=== PATIENT | male | born 1950 | race Caucasian/White ===

== ENCOUNTER → 2017-08-06 16:43 | Outpatient (CLI) | payer MEDICARE, MEDICAID ==
[2017-08-06 19:15] LABS: CHOL - HDL RATIO 3.4 ratio (2.3-4.9); LDL-HDL RATIO 1.7 ratio (1.5-3.5)
== END | disposition home or self-care (01) ==
LOC: D.LABREF 16:43
PROVIDERS: Internal Medicine Cardiovascular Disease
DX: E78.5 Hyperlipidemia, unspecified (principal)

== ENCOUNTER 2017-09-14 06:14 | Emergency (ER) | payer MEDICARE, MEDICAID ==
[2017-09-14 07:01] LABS: BASOPHILS 0 % (0-2); EOSINOPHILS 4.6 % (0-7); HEMATOCRIT 42.3 % (42.0-54.0); HEMOGLOBIN 14.6 g/dL (13.5-17.5); IMMATURE GRANULOCYTES 0.3 % (0-5); MCH 31.5 pg (26.0-34.0); MCHC 34.5 g/dL (31.0-37.0); MCV 91.2 fL (80.0-100.0); MEAN PLATELET VOLUME 10.5 fL (7.4-10.4); MONOCYTES 10.4 % (2-11); NEUTROPHILS 67.7 % (40-80); PLATELET COUNT 180 10x3/uL (130-400); RBC 4.64 10x6/uL (4.20-6.10); RDW 13.5 % (11.5-14.5); WBC 6.5 10x3/uL (4.8-10.8)
[2017-09-14 07:27] LABS: ALBUMIN 3.8 g/dL (3.4-5.0); ALKALINE PHOSPHATASE 99 U/L (46-116); ALT (SGPT) 21 U/L (10-68); BILIRUBIN - TOTAL 0.46 mg/dL (0.2-1.3); CALC OSMOLALITY 278 mosm/kg (275-300); CALCIUM 9.1 mg/dL (8.5-10.1); CARBON DIOXIDE 24.2 mmol/L (21.0-32.0); CHLORIDE - SERUM 103 mmol/L (98-107); CREATININE - SERUM 0.8 mg/dL (0.6-1.3); GLUCOSE 160 mg/dL (74-106); PROTEIN - SERUM 6.8 g/dL (6.4-8.2); SODIUM 138 mmol/L (136-145); UREA NITROGEN 12 mg/dL (7-18); eGFR NON AFRICAN AMERICAN > 90 mL/min (90-120)
[2017-09-14 07:35] LABS: MAGNESIUM - SERUM 2.3 mg/dL (1.8-2.4); PRO BNP 653 pg/mL (0-125); TROPONIN-I < 0.017 ng/mL (0.000-0.060)
== END 2017-09-14 10:05 | disposition home or self-care (01) ==
LOC: D.ER 06:14
PROVIDERS: Family Medicine
DX: I48.0 Paroxysmal atrial fibrillation (principal); I10 Essential (primary) hypertension

== ENCOUNTER → 2017-11-06 16:52 | Outpatient (CLI) | payer MEDICARE, MEDICAID ==
[~2017-11-06 16:52] MED LIST: AMITIZA8 MCG PO; BAYER CHEWABLE81 MG PO; BREO ELLIPTA 21 EACH; CARTIA XT120 MG PO; COREG12.5 MG PO; ELIQUIS5 MG PO; FISH OIL 1,0001 CA1 PO; LUNESTA3 MG PO; MESTINON60 MG PO; NIASPAN500 MG PO; OMEPRAZOLE20 M1 PO; TIKOSYN500 MCG PO; ZOCOR10 MG PO
[2017-11-06 17:55] LABS: BASOPHILS 0.2 % (0-2); EOSINOPHILS 6.1 % (0-7); HEMATOCRIT 42.1 % (42.0-54.0); HEMOGLOBIN 14.1 g/dL (13.5-17.5); IMMATURE GRANULOCYTES 0.3 % (0-5); LYMPHOCYTES 17.9 % (15-50); MCH 30.9 pg (26.0-34.0); MCHC 33.5 g/dL (31.0-37.0); MCV 92.3 fL (80.0-100.0); MEAN PLATELET VOLUME 11.3 fL (7.4-10.4); MONOCYTES 11.1 % (2-11); NEUTROPHILS 64.4 % (40-80); PLATELET COUNT 190 10x3/uL (130-400); RBC 4.56 10x6/uL (4.20-6.10); RDW 13.8 % (11.5-14.5)
[2017-11-06 17:57] LABS: CALC OSMOLALITY 279 mosm/kg (275-300); CALCIUM 8.8 mg/dL (8.5-10.1); CARBON DIOXIDE 24.8 mmol/L (21.0-32.0); CHLORIDE - SERUM 103 mmol/L (98-107); CREATININE - SERUM 0.7 mg/dL (0.6-1.3); GLUCOSE 134 mg/dL (74-106); POTASSIUM - SERUM 4.3 mmol/L (3.5-5.1); SODIUM 138 mmol/L (136-145); UREA NITROGEN 18 mg/dL (7-18); eGFR NON AFRICAN AMERICAN > 90 mL/min (90-120)
[2018-01-02 06:59] VITALS: BMI 44.7
== END | disposition home or self-care (01) ==
LOC: D.LABREF 16:52
PROVIDERS: Nurse Practitioner
DX: I48.91 Unspecified atrial fibrillation (principal)

== ENCOUNTER → 2017-12-23 08:57 | Outpatient (CLI) | payer MEDICARE, MEDICAID ==
[2018-01-02 06:59] VITALS: BMI 44.7
== END | disposition home or self-care (01) ==
LOC: D.CT 08:57
DX: M54.2 Cervicalgia (principal)

== ENCOUNTER → 2018-01-02 05:50 | Outpatient (CLI) | payer MEDICARE, MEDICAID ==
[~2018-01-02] VITALS: Ht 180.3 cm; Wt 145.5 kg
--- NOTE | ~2018-01-02 | HEMODYNAMI ---
PATIENT:JEAN ORTIZ MEDICAL RECORD: [id number] : 54 LOCATION:[facility] ADMISSION DATE: 01/02/18 Generatedon:01/02/20188:20 Patient name: JEAN ORTIZ Patient #: [id number] SSN: : 1950 Date of study: 01/02/2018 Page: Of Hemodynamic Procedure Report Patient Data Patient Demographics Procedure consent was obtained First Name: JEAN Gender: Male Last Name: DIANA : 1950 Middle Initial: Stephanie Age: 67 year(s) Patient #: [id number] Race: Unknown Additional ID: [id number] Contact details [address]: [address] [place] [address] lane State: [place] City: [place] Zip code: [address] Past Medical History Allergies Allergen Reaction Date Comments Reported Other allergy 01/02/2018 CEFDINIR Admission Admission Data Admission Date: 01/02/2018 Admission Time: 5:50 Height (in.): 5.11 BSA: 0.38 (m2) Height (cm.): 12.98 BMI: 8535.24 (kg/m2) Weight (lbs.): 317 Weight (kg.): 143.79 Lab Results Lab Result Date: 01/02/2018 Lab Result Time: 0:00 Biochemistry Name Units Result Min Max BUN mg/dl 15 --(--*-)-- 7 18 Creatinine mg/dl 0.9 --(-*--)-- 0.6 1.3 CBC Name Units Result Min Max Hemoglobin g/dl 15 --(-*--)-- 13.5 17.5 Procedure Procedure Types Cath Procedure Diagnostic Procedure LHC LHC w/Coronaries Procedure Description Procedure Date Procedure Date: 01/02/2018 Procedure Start Time: 8:05 Procedure End Time: 8:19 Procedure Staff Name Function Julian Odonnell MD Performing Physician Marine Guthrie RT Scrub Norberto Maxwell RN Nurse Madan Larios RT Monitor Procedure Data Cath Procedure Fluoroscopy Diagnostic fluoroscopy Total fluoroscopy Time: 2.1 time: 2.1 min min Diagnostic fluoroscopy Total fluoroscopy dose: 776 dose: 776 mGy mGy Contrast Material Contrast Material Type Amount (ml) Isovue 300 54 Entry Location Entry Primary Successful Side Size Upsize Upsize Entry Closure Harris ccessful Closure Location (Fr) 1 (Fr) 2 (Fr) Remarks Device Remarks Radial Right 6 Fr Mechanical artery Short Compression Estimated blood loss: 5 ml Diagnostic catheters Device Type Used For End Catheter Placement DIAGNOSTIC Leoncio 110cm Procedure 5Fr catheter ([id number]) Procedure Complications No complications Procedure Medications Medication Administration Route Dosage 0.9% NaCl I.V. 100 ml/hr Oxygen etCO2 Nasal cannula 2 l/min Heparin Flush Bag added to field 2 bags (1000units/500ml NS) Lidocaine 2% added to field 20 Radial Cocktail added to field 1 syringe (Verapomil 2mg/Nitro 400mcg/Heparin 1500units) Versed I.V. 2 mg Fentanyl I.V. 100 mcg Versed I.V. 2 mg Radial Cocktail I.A. 1 syringe (Verapomil 2mg/Nitro 400mcg/Heparin 1500units) Versed I.V. 2 mg Hemodynamics Rest BSA: 0.38 (m2) HGB: 15 (g/dl) O2 Consumption: Estimated: 48.38 (ml/min) O2 Consu mption indexed: Estimated:127.32 (ml/min/m) Heart Rate: 98 (bpm) Pressure Samples Time Site Value (mmHg) Purpose Heart Use Rate(bpm) 8:08 LV 90/-1,2 Snapshot 126 8:08 AO 79/60(66) Pullback 99 8:08 LV 92/-1,4 Pullback 99 Gradients Valve Time Site 1 Site 2 Mean SEP/DFP Peak To Heart Use (mmHg) (sec/min) Peak Rate (mmHg) (bpm) Aortic 8:08 LV AO 6 21 13 99 92/-1,4 79/60(66) Calculations Valve P-P Mean Valve Index Valve Source Name Gradient Area Flow (cm2) Aortic 13 6 13 6 Snapshots Pre Cath Intra NCS Post Cath Vital Signs Time Heart Resp SPO2 etCO2 NIBP (mmHg) Rhythm Pain Sedation Rate (ipm) (%) (mmHg) Status Level (bpm) 7:58:02 97 12 95 5.9 129/77(97) NSR 0 (11) 10(A) , No pain 8:02:51 60 12 95 1.4 121/74(93) NSR 0 (11) 10(A) , No pain 8:07:34 106 19 96 19.4 119/70(90) NSR 0 (11) 10(A) , No pain 8:12:12 80 18 94 33.6 114/96(111) NSR 0 (11) 10(A) , No pain 8:16:57 105 10 96 32.9 107/77(92) NSR 0 (11) 10(A) , No pain Medications Time Medication Route Dose Verified Delivered Reason Notes Effectiveness by by 7:56:43 0.9% NaCl I.V. 100 Norberto Norberto Per ml/hr Alissa Maxwell physician RN RN 7:57:06 Oxygen etCO2 2 l/min Norberto Norberto Per Nasal Alissa Maxwell physician cannula RN RN 7:57:23 Heparin Flush added 2 bags Norberto Norberto used for Bag to Alissa Maxwell procedure (1000units/500ml field ALVAREZ RN NS) 7:57:35 Lidocaine 2% added 20ml Norberto Norberto for local to vial Lorigan Alissa anesthetic field ALVAREZ RN 7:58:01 Radial Cocktail added 1 Norberto Norberto used for (Verapomil to syringe Alissa Maxwell procedure 2mg/Nitro field KIM ALVAREZ 400mcg/Heparin 1500units) 8:00:13 Versed I.V. 2 mg Norberto Norberto for sedation Alissa Maxwell RN, RN 8:00:21 Fentanyl I.V. 100 mcg Norberto Norberto for sedation Alissa Maxwell RN, RN 8:05:36 Versed I.V. 2 mg Norberto Norberto for sedation Alissa Maxwell RN, RN 8:07:24 Radial Cocktail I.A. 1 Norberto Julian for (Verapomil syringe Alissa crabtree 2mg/Nitro RN 400mcg/Heparin 1500units) 8:09:18 Versed I.V. 2 mg Norberto Norberto for sedation Alissa Maxwell RN aerodynamics teacher Log Time Note 7:23:21 Signed procedure consent form obtained from patient. 7:23:23 Time tracking: Regular hours (M-F 7:00 - 5:00) 7:23:27 Plan of Care:Hemodynamics will remain stable., Cardiac rhythm will remain stable., Comfort level will be maintained., Respiratory function will remain adequate., Patient/ family verbilizes understanding of procedure., Procedure tolerated without complication., Recovers from procedure without complications.. 7:26:25 Patient allergic to Other allergyCEFDINIR 7::47 Lab Result : BUN 15 mg/dl 7::47 Lab Result : Creatinine 0.9 mg/dl 7::47 Lab Result : Hemoglobin 15 g/dl 7:27:42 Remy Aviles RT(R) sent for patient. Start room use. 7:29:34 Patient Height : 5.11 inches 7:29:45 Patient Weight : 317 lbs 7:37:54 Patient received from Pre/Post Procedure Room to CCL 1 Alert and oriented. Tansferred to table in Supine position. 7:37:59 Warm blankets applied, and caleb hugger turned on for patient comfort. 7:38:00 Correct patient and procedure confirmed by team. 7:38:01 ECG and BP/O2 sat monitors applied to patient. 7:41:48 H&P Date Dictated: 12/03/2017 Within 30 days and on chart., H&P Addendum completed by physician on day of procedure. (MUST COMPLETE FOR ALL OUTPATIENTS). 7:41:50 Pre-procedure instructions explained to patient. 7:41:51 Pre-op teaching completed and patient verbalized understanding. 7:41:54 Family unavailable. 7:41:55 Patient NPO since Midnight. 7:41:57 Is the patient allergic to Iodine/contrast media? No. 7:42:02 Is patient on blood thinner?Yes 7:42:31 LAST DOSE OF ELIQUIS WAS 4.23.18. 7:42:42 Patient diabetic? No. 7:42:53 Previous problem with sedation/anesthesia? No ? 7:42:56 Snore? Yes 7:42:57 Sleep apnea? Yes 7:42:59 Deviated septum? No 7:43:00 Opens mouth fully? Yes 7:43:01 Sticks out tongue? Yes 7:43:04 Airway obstruction? No ? 7:43:09 Dentures? No ? 7:43:20 Pre procedure: right dorsailis pedis pulse 1+ Palpable, but thready & weak; easily obliterated 7:43:23 Modified Young's test Ulnar < 7 seconds 7:43:26 Patient pain scale 0/10 ?. 7:43:34 IV patent on arrival in left forearm with 0.9% NaCl at O. 7:43:37 Lab results completed and on chart. 7:43:41 Right Radial & Right Groin area was prepped with chlora-prep and draped in sterile fashion 7:43:43 Alarms reviewed by R. N. 7:43:43 Sharps counted by scrub and verified by R.N. 7:56:43 0.9% NaCl 100 ml/hr I.V. was administered by Norberto Maxwell RN; Per physician; 7:56:52 Baseline sample Acquired. 7:57:01 Use device set Radial Dx or PCI 7:57:04 Vital chart was started 7:57:06 Oxygen 2 l/min etCO2 Nasal cannula was administered by Norberto Maxwell RN; Per physician; 7:57:16 Medline Cath Pack ([id number]) opened to sterile field. 7:57:16 ACIST Syringe (01197) opened to sterile field. 7:57:17 Bag Decanter (2002S) opened to sterile field. 7:57:19 ACIST Hand Control (27236) opened to sterile field. 7:57:19 ACIST Manifold (48845) opened to sterile field. 7:57:21 MBrace Wrist Support ([id number]) opened to sterile field. 7:57:21 Tegaderm 4 x 4 (1626W) opened to sterile field. 7:57:23 DIAGNOSTIC WIRE .035 260cm J wire (002871) opened to sterile field. 7:57:23 Heparin Flush Bag (1000units/500ml NS) 2 bags added to field was administered by Norberto Maxwell RN; used for procedure; 7:57:26 SHEATH 6Fr Prelude Radial ([id number]) opened to sterile field. 7:57:35 Lidocaine 2% 20ml vial added to field was administered by Norberto Maxwell RN; for local anesthetic; 7:58:01 Radial Cocktail (Verapomil 2mg/Nitro 400mcg/Heparin 1500units) 1 syringe added to field was administered by Norberto Maxwell RN; used for procedure; 7:59:14 Rhythm: atrial fibrillation 7:59:17 Physician arrived 7:59:17 --------ALL STOP TIME OUT------ 7:59:17 Final Timeout: patient, procedure, and site verified with staff and physician. All members of the team are in agreement. 7:59:19 Right Radial & Right Groin site verified by team. 7:59:21 Physical assessment completed. ASA score P 2 - A patient with mild systemic disease as per Julian Odonnell MD. 7:59:24 Sedation plan: IV Moderate Sedation Medication:Versed, Fentanyl 8:00:13 Versed 2 mg I.V. was administered by Norberto Maxwell RN; for sedation; 8:00:21 Fentanyl 100 mcg I.V. was administered by Norberto Maxwell RN; for sedation; 8:02:26 Zero performed for pressure channel P1 8:05:15 Procedure started. 8:05:15 Full Disclosure recording started 8::19 Local anesthetic to right radial artery with Lidocaine 2% by Julian Odonnell MD.INITIAL ACCESS ONLY 8:05:36 Versed 2 mg I.V. was administered by Norberto Maxwell RN; for sedation; 8:06:15 A 6 Fr Short sheath was inserted into the Right Radial artery 8:06:30 A DIAGNOSTIC Leoncio 110cm 5Fr catheter ([id number]) was advanced over the wire and used for Procedure. 8:07:24 Radial Cocktail (Verapomil 2mg/Nitro 400mcg/Heparin 1500units) 1 syringe I.A. was administered by Julian Odonnell MD; for vasodilation; 8:08:23 LV gram done using MILLER 8:08:26 Injector settings: Ml/sec: 5, Volume: 15, 8:08:37 EF : 45 % 8:09:18 Versed 2 mg I.V. was administered by Norberto Maxwell RN; for sedation; 8:09:27 LCA angiography performed. 8:11:05 RCA angiography performed. 8:12:18 Catheter removed. 8:13:56 TR BAND Large ([id number]) opened to sterile field. 8:14:04 Sheath removed intact; hemostasis achieved with Mechanical Compression to the Right Radial artery. 8:14:06 Procedure ended.(Physican Out) 8:14:33 Fluoroscopy time 02.10 minutes. 8:14:36 Flurop Dose total: 776 8:14:36 Fluoroscopy dose: 776 mGy 8:14:39 Contrast amount:Isovue 300 54ml. 8:14:41 Sharps counted by scrub and verified by R.N. 8:14:43 TR band inflated with 12cc of air. 8:14:44 Insertion/operative site no bleeding no hematoma. 8:14:46 Post Procedure Pulses reassessed and unchanged 8:14:49 Post-procedure physical assessment completed. ASA score P 2 - A patient with mild systemic disease as per Julian Odonnell MD. 8:14:51 Post procedure rhythm: unchanged. 8:14:53 Estimated blood loss: 5 ml 8:14:54 Post procedure instruction explained to patient.Patient verbalizes understanding. 8:14:55 Patient needs reinforcement of post procedure teaching. 8:19:41 Procedure Complication : No complications 8:19:43 Vital chart was stopped 8:19:43 See physician's report for complete and final results. 8:19:45 Report given to Pre/Post Procedure Room. 8:19:48 Patient transfered to Pre/Post Procedure Room with Stretcher. 8:19:49 Procedure ended. 8:19:49 Full Disclosure recording stopped 8:19:53 End room use (Document Last) Device Usage Item Name Manufacture Quantity Catalog Number Hospital Part Current M inimal Lot# / Charge Number Stock Stock Serial# Code TR BAND Large Terumo 1 [id number] 731945 [id number] 4 0 ([id number]) ACIST Syringe Acist 1 33992 841905 573486 534715 2 0 (29583) [employer] Medline Cath Cardinal 1 [id number] 322046 88078 546774 5 Pack Health ([id number]) Bag Decanter Microtek 1 2001S 680354 24712 330090 5 (2001S) Medical Inc. ACIST Hand Acist 1 55668 026470 518994 602592 5 Control (35149) [employer] Inc ACIST Manifold Acist 1 52764 290106 624702 642574 5 (37584) [employer] Inc Tegaderm 4 x 4 3M 1 1626W 925833 831853 458558 5 (1626W) MBrace Wrist Advanced 1 140-0250-00 861846 77281 814964 5 Support Vascular ([id number]) Dynamics DIAGNOSTIC WIRE [facility] 1 068617 077556 642125 867576 3 0 .035 260cm J wire (320900) SHEATH 6Fr Merit 1 [id number] 478972 226377 691320 5 Prelude Radial Medical ([id number]) DIAGNOSTIC Terumo 1 82-0917 591698 394164 187088 5 Leoncio 110cm 5Fr catheter (607527) Signature Audit Spring Stage Time Signature Unsigned Intra-Procedure 01/02/2018 Madan Larios 8:20:18 AM RT(R) Signatures Monitor : Madan Larios RT Signature : Date : Time : [address] [address]
[2018-01-02 06:55] LABS: BASOPHILS 0.1 % (0-2); IMMATURE GRANULOCYTES 0.1 % (0-5); LYMPHOCYTES 16.5 % (15-50); MCH 30.5 pg (26.0-34.0); MCHC 34.1 g/dL (31.0-37.0); MCV 89.6 fL (80.0-100.0); MEAN PLATELET VOLUME 10.4 fL (7.4-10.4); NEUTROPHILS 67.3 % (40-80); PLATELET COUNT 164 10x3/uL (130-400); RBC 4.91 10x6/uL (4.20-6.10); RDW 13.6 % (11.5-14.5); WBC 6.9 10x3/uL (4.8-10.8)
[2018-01-02 06:59] VITALS: BP 119/83; Ht 180.3 cm; Wt 145.5 kg
[2018-01-02 07:05] LABS: CALC OSMOLALITY 281 mosm/kg (275-300); CALCIUM 8.5 mg/dL (8.5-10.1); CARBON DIOXIDE 23.5 mmol/L (21.0-32.0); CHLORIDE - SERUM 104 mmol/L (98-107); CREATININE - SERUM 0.9 mg/dL (0.6-1.3); GLUCOSE 140 mg/dL (74-106); POTASSIUM - SERUM 3.9 mmol/L (3.5-5.1); SODIUM 140 mmol/L (136-145); UREA NITROGEN 15 mg/dL (7-18); eGFR NON AFRICAN AMERICAN 90 mL/min (90-120)
== END | disposition home or self-care (01) ==
LOC: D.CATH 05:50
PROVIDERS: Internal Medicine Cardiovascular Disease
DX: I25.119 Atherosclerotic heart disease of native coronary artery with unspecified angina pectoris (principal); Z95.5 Presence of coronary angioplasty implant and graft; Z01.812 Encounter for preprocedural laboratory examination

== ENCOUNTER 2019-03-16 09:09 | Day surgery (SDC) | payer MEDICARE, BC ==
[~2019-03-16] VITALS: Ht 180.3 cm; Wt 142.7 kg
[2019-03-16] MEDS ORDERED: TEMAZEPAM30 MG PO (10:05)
[2019-03-16] MEDS ORDERED: OXYBUTYNIN CHLOR5 M1 PO (10:06)
[2019-03-16 10:08] VITALS: BP 117/72; Ht 180.3 cm; Wt 142.7 kg
[2019-03-16 10:49] LABS: APTT 29.7 SECONDS (22.8-39.4); INR 1.07 (0.85-1.17); PROTIME 13.4 SECONDS (11.6-15.0)
[2019-03-16 11:08] LABS: HEMATOCRIT 46.3 % (42.0-54.0); HEMOGLOBIN 15.9 g/dL (13.5-17.5); MCH 31.8 pg (26.0-34.0); MCHC 34.3 g/dL (31.0-37.0); MCV 92.6 fL (80.0-100.0); MEAN PLATELET VOLUME 10.5 fL (7.4-10.4); RDW 13.6 % (11.5-14.5); WBC 6.6 10x3/uL (4.8-10.8)
--- NOTE | 2019-03-16 13:26 | NUR ---
1231 IV DC'D. CATHETER INTACT. NO BLEEDING AT SITE. BANDAID APPLIED.
--- NOTE | 2019-03-16 13:27 | NUR ---
1245 PT HAS MET DISCHARGE CRITERIA. PT IS DRESSED, SITTING IN CHAIR,AND WAITING FOR HIS FAMILY MEMBER TO PICK HIM UP.
--- NOTE | 2019-03-18 08:48 | OP ---
PATIENT NAME: JEAN ORTIZ MEDICAL RECORD: [id number] :54 [facility] ADMISSION DATE: SURGEON: KASSY CHRISTENSEN DO DATE OF OPERATION: 03/16/2019 PROCEDURE: Colonoscopy with polypectomy. INDICATIONS FOR PROCEDURE: Screening for colorectal cancer. SCOPE: Olympus video pediatric colonoscope. MEDICATIONS: Propofol 450 mg IV per Anesthesia. WITHDRAWAL TIME: 13 minutes. ESTIMATED BLOOD LOSS: Minimal. COMPLICATIONS: None. FINDINGS: Informed consent was given. The patient was made comfortable with the above medication. After reaching an adequate level of sedation by slow IV push, the patient was placed on his left side. A digital rectal examination was performed and was normal. The endoscope was then advanced under direct visualization through the rectum to the cecum, confirmed by the presence of the appendiceal orifice and ileocecal valve. The endoscope was slowly withdrawn and mucosa was carefully examined. The prep quality was good. There were 4 polyps visualized on today's examination. One was located in the ascending colon. It was benign appearing sessile polyp, which measured approximately 6-7 mm in diameter. It was removed using a hot snare in 1 piece and completely retrieved. In the transverse colon, there were two separate benign-appearing sessile polyps, which ranged in size from 3-4 mm in diameter. They were both removed using a hot snare in 1 piece and completely retrieved. In the descending colon, there was a benign appearing sessile polyp, which measured approximately 4 mm in diameter. It was removed using a hot snare in 1 piece and completely retrieved. There was evidence of moderate diverticulosis involving the descending and sigmoid colon. Retroflexion was performed in the rectum with visualization of grade I internal hemorrhoids without active bleeding. The endoscope was withdrawn from the patient. The patient tolerated the procedure well and there were no complications. IMPRESSION: 1. Four polyps as described above, removed using a hot snare. 2. Moderate diverticulosis of the descending and sigmoid colon. 3. Grade I internal hemorrhoids without bleeding. PLAN AND RECOMMENDATIONS: 1. Discharge home when recovery parameters are met. 2. Follow up biopsy specimen results. 3. High fiber diet. 4. Continue current medications. 5. Recall colonoscopy in 3 years. TRANSINT:[id number] Voice Confirmation ID: [id number] DOCUMENT ID: [id number] OPERATIVE REPORT [id number] JEAN ORTIZ KASSY CHRISTENSEN DO at 0848 CC: [id number] DICTATION DATE: 03/16/19 1148 REVENUE MANAGER: 03/16/19 1200 [facility] 03/16/19 [id number] [place] [address]
== END 2019-03-16 13:15 | disposition home or self-care (01) ==
LOC: D.OPS 09:09
PROVIDERS: Anesthesiology; ATTEND Internal Medicine Gastroenterology
DX: Z12.11 Encounter for screening for malignant neoplasm of colon (principal); K63.5 Polyp of colon; K64.0 First degree hemorrhoids; K57.30 Diverticulosis of large intestine without perforation or abscess without bleeding; Z01.812 Encounter for preprocedural laboratory examination

== ENCOUNTER 2019-06-01 08:30 | Day surgery (SDC) | payer MEDICARE, BC ==
[2019-05-29 10:17] LABS: HEMOGLOBIN 15.4 g/dL (13.5-17.5); MCH 31.8 pg (26.0-34.0); MCV 90.7 fL (80.0-100.0); MEAN PLATELET VOLUME 10.6 fL (7.4-10.4); RBC 4.85 10x6/uL (4.20-6.10); RDW 13.3 % (11.5-14.5); WBC 7.5 10x3/uL (4.8-10.8)
[2019-05-29 10:22] LABS: APTT 32.2 SECONDS (22.8-39.4); INR 1.17 (0.85-1.17); PROTIME 14.4 SECONDS (11.6-15.0)
[~2019-06-01] VITALS: Ht 180.3 cm; Wt 115.7 kg
[~2019-06-01 08:30] MED LIST changes: +OXYBUTYNIN CHLOR5 M1 PO; +TEMAZEPAM30 MG PO
[2019-06-01] MEDS ORDERED: FLUTICASONE PRO16 GM NASAL (09:07)
[2019-06-01] MEDS ORDERED: ADVIL200 MG PO (09:09)
[2019-06-01 09:27] VITALS: BP 139/81; Ht 180.3 cm; Wt 115.7 kg
[2019-06-01] MEDS ORDERED: HYDROCODON-ACE1 EA10 PO (12:05)
--- NOTE | 2019-06-01 12:18 | NUR ---
PT DENIES COMPLAINT OR PAIN. DIGIT BLOCK ADMIN DURING CASE
--- NOTE | 2019-06-01 16:29 | NUR ---
1250 VOIDED 1310 IV REMOVED. INSTRUCTIONS GIVEN. SLING PROVIDED 1340 PT DISCHARGED WITH FAMILY,
--- NOTE | 2019-06-04 10:00 | OP ---
PATIENT NAME: JEAN ORTIZ MEDICAL RECORD: [id number] :54 LOCATION:[facility] ADMISSION DATE: SURGEON: JEAN ARELLANO MD DATE OF OPERATION: 06/01/2019 PREOPERATIVE DIAGNOSES: 1. Periarticular mucinous cyst with nail bed disruption. 2. 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 PREOPERATIVE DIAGNOSES: 1. Periarticular mucinous cyst with nail bed disruption. 2. 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 PROCEDURES: 1. Excision of mucinous cyst. 2. Excision of hypertrophic nail growth. 3. Curettage and bone grafting of the interosseous cyst. SURGEON: Jean Arellano MD MACHINE RIGGER: IRVING Castro INTRAOPERATIVE COMPLICATIONS: None. SUMMARY OF PATHOLOGIC FINDINGS: The cyst was just distal to the joint; however, the patient had a large intraosseous cyst that was just proximal to the joint. The patient had hypertrophic and erratic growth distal to the cyst. Therefore, this nail bed was excised; however, the germinal matrix was not ablated as I felt like cyst excision would result in regrowth of a normal nail bed. The proximal cyst was identified on fluoroscopy, very gently curettaged and filled with BIO4 bone graft from [employer] OPERATIVE SUMMARY IN DETAIL: After obtaining the appropriate preoperative orthopedic surgery consent as well as anesthetic consultation, evaluation and clearance, the patient was brought to the operating room and placed on the operating table in a supine position. After general laryngeal mask airway was administered, a tourniquet was placed about the proximal aspect of left upper extremity. Left upper extremity was then prepped and draped in routine sterile fashion. The arm was elevated and exsanguinated. Tourniquet was inflated to 350 mmHg. Under fluoroscopic guidance, the cyst just distal to the DIP joint was evaluated. A small incision was made over the DIP joint and the cyst was seen. Curettage was then utilized to remove the cyst. The hypertrophic nail was excised on the medial aspect and curettage was utilized to remove the entire cyst in its entirety that was seemingly at the very apex of the germinal matrix. Having completed this, a midlateral incision was made on the radial aspect of the finger at the distal aspect of the middle phalanx. Under fluoroscopic guidance, 18-gauge needle was used to disrupt the cortex and then a micro curettage was utilized to curettage. Prior to this, the 18-gauge needle was utilized to aspirate the cyst and the cells were sent for pathology. After curettage, the area was packed with BIO4, resulting in radiographic changes showing that the cyst was completely filled. Both areas were irrigated and closed with 4-0 Prolene in interrupted fashion. Sterile dressings were applied and a splint was applied for stabilization. Tourniquet was deflated. The OPERATIVE REPORT [id number] JEAN ORTIZ patient was awakened and taken to recovery in stable condition. All final needle and sponge counts were correct. TRANSINT:[id number] Voice Confirmation ID: [id number] DOCUMENT ID: [id number] EILEEN ESPINOZA, JEAN ERIC at 1000 CC: [id number] DICTATION DATE: 06/03/19909 VIOLIN MECHANIC: 06/03/19 1318 [facility] 06/01/19 [address] [place] [address]
== END 2019-06-01 13:40 | disposition home or self-care (01) ==
LOC: D.OPS 08:30 → D.PAN 09:30 → D.OPS 10:00 → D.PAN 10:30 → D.OPS 10:45 → D.PAN 10:45 → D.OPS 13:40 → D.PAN 13:40
PROVIDERS: Anesthesiology; ATTEND Orthopaedic Surgery
DX: M85.442 Solitary bone cyst, left hand (principal); M25.842 Other specified joint disorders, left hand; L60.2 Onychogryphosis